=== PATIENT | male | born 1975 | race Caucasian/White ===

== ENCOUNTER 2020-03-20 20:23 | Emergency (ER) | payer OTHER, SELFPAY ==
--- NOTE | ~2020-03-20 | CT_ITS ---
EXAMINATION: CT abdomen pelvis w con EXAM DATE: 03/20/2020 22:52 INDICATION: Generalized abdominal pain. TECHNIQUE: Spiral CT of the abdomen and pelvis was performed following intravenous injection of 100 m L Omnipaque 350. Axial, coronal and sagittal images were reviewed. The dose-length product (DLP) fo r this examination was 1502.87 mGy-cm. The exposure was tailored according to patient size (auto mA exposure control), and iterative reconstruction (ASIR) was used as additional dose reduction techniqu e. There is no prior study for comparison. FINDINGS: The liver, spleen, adrenal glands and pancreas are unremarkable. Gallbladder is unremarkab le. No biliary obstruction. Portal and splenic veins are patent. Kidneys enhance symmetrically. T here is no hydronephrosis. The prostate is unremarkable. The bladder is unremarkable. There is no retroperitoneal or pelvic lymphadenopathy. The appendix is normal. The stomach and small bowel are unremarkable. There is expected amount of c olonic stool. No free intraperitoneal gas. The heart is normal in size. There are no pericardial or pleural effusions. The lung bases are unremarkable. The bones are unremarkable. IMPRESSION: 1. No acute intra-abdominal findings. Reviewed, dictated and finalized at location G.
--- NOTE | ~2020-03-20 | XR_ITS ---
EXAMINATION: XR chest 2V EXAM DATE: 03/20/2020 20:53 INDICATION: Shortness of breath and left-sided chest pain. History of asthma and hypertension. TECHNIQUE: Frontal and lateral projections of the chest obtained and reviewed. There is no prior [place] dy for comparison. FINDINGS: The lungs are clear. There are no pleural effusions. The cardiomediastinal silhouette is within normal limits. There is no pneumothorax suspected. The bones and soft tissues are unremarkab le. IMPRESSION: No acute cardiopulmonary findings. Reviewed, dictated and finalized at location A.
--- NOTE | 2020-03-20 20:25 | ECG_ITS ---
Measurements Intervals [place] Rate: 87 P: -8 [place]: 163 QRS: 35 QRSD: 120 T: 1 QT: 380 QTc: 458 Interpretive Statements SINUS RHYTHM INTRAVENTRICULAR CONDUCTION DELAY BORDERLINE T WAVE ABNORMALITY- INFERIOR LEADS BORDERLINE ECG Electronically Signed On 03-21-2020 10:31:11 CDT by Sergey James D.O.
[2020-03-20 20:31] VITALS: BP 169/98; PULSE 101; RESP 18; TEMP 36.9; O2SAT 99
[2020-03-20 20:35] LABS: Basophils Absolute Auto 0.1 K/mm3 (0.0-0.1); Basophils Percent Auto 0.7 % (0.2-1.2); Eosinophils Absolute Auto 0.3 K/mm3 (0-0.3); Eosinophils Percent Auto 2.8 % (0-4.4); Hematocrit 45.3 % (42.0-52.0); Hemoglobin 15.6 g/dL (14.0-18.0); Immature Granulocyte Absolute 0.03 K/mm3 (0.00-0.031); Immature Granulocyte Percent A 0.3 % (0-0.5); Mean Corpuscular HGB Conc 34.4 g/dl (32-36); Mean Corpuscular Hemoglobin 30.8 pg (26-34); Mean Corpuscular Volume 89.3 fl (80-100); Mean Platelet Volume 9.5 fl (7.4-10.4); Monocytes Absolute Auto 0.8 K/mm3 (0.1-0.6); Monocytes Percent Auto 8.1 % (2.6-8.5); Neutrophils Absolute Auto 5.4 K/mm3 (1.3-6.7); Neutrophils Percent Auto 52.1 % (45.5-73.1); Platelet Count Result 273 k/mm3 (150-375); Red Blood Count 5.07 M/mm3 (4.6-6.20); Red Cell Distribution Width 12.5 % (11.5-14.5); White Blood Count 10.3 K/mm3 (4.5-10.0)
[2020-03-20 20:47] LABS: Blood Urea Nitrogen 9 mg/dL (9-20); Calcium 9.5 mg/dL (8.4-10.2); Carbon Dioxide 24 mmol/L (22-30); Chloride 103 mmol/L (98-107); Estimated Glomerular Filt Rate > 60; Glucose 91 mg/dL (75-110); Potassium 3.4 mmol/L (3.4-5.0); Sodium 138 mmol/L (137-145)
--- NOTE | 2020-03-20 20:52 | ED.GENADULT ---
HPI - General Adult General Chief complaint: Shortness of Breath/Dyspnea Stated complaint: SOB Time Seen by Provider: 03/20/20 20:52 Source: patient Mode of arrival: ambulatory Limitations: no limitations History of Present Illness HPI narrative: Patient is a 44-year-old male who presents for evaluation of sinus congestion, abdominal pain. Patient reports he has been having some shortness of breath because his nose is congested. He took some Claritin with minimal improvement in his symptoms. Patient states he has been having some belly pain, but denies any chest pain or shortness of breath currently. No cough or fever. No diarrhea or constipation. Patient states his daughters prompted him to come to the emergency department. Patient's daughter at bedside states her father has been under a great deal of stress, that her mother from a leukemia cancer diagnosis 2 weeks ago. Patient is tearful, does report some depression type symptoms. Related Data Allergies Allergy/AdvReac Type Severity Reaction Status Date / Time No Known Allergies Allergy Verified 03/20/20 23:27 Review of Systems Review of Systems: Narrative: CONSTITUTIONAL: Denies fever, chills, or sweats. EYES: Denies visual changes, redness, or discharge. ENT: Reports rhinorrhea and congestion, denies sore throat CARDIOVASCULAR: Denies chest pain, palpitations, or edema. RESPIRATORY: Denies cough or dyspnea. GASTROINTESTINAL: Reports abdominal pain, 1 episode of vomiting yesterday, denies diarrhea or constipation GENITOURINARY: Denies dysuria or hematuria. SKIN: Denies rash or itching. MUSCULOSKELETAL: Denies back pain, joint pain, or myalgia. NEUROLOGIC: Denies headache, numbness, or weakness. PSYCHIATRIC: Reports some depression PMFSH Past Medical History Medical History HLD (hyperlipidemia) Family History Family History Father Patient's father is , Onset Age: 83 Family history of chronic obstructive pulmonary disease Social History Social History Smoking status: Never smoker Alcohol intake: current Gender identity (if verbalized by the patient): Male Exam Narrative: Exam Narrative: GENERAL: Awake, alert, conversant HEAD: Normocephalic, atraumatic. EYES: PERRLA and EOMI. ENT: Nares clear, no rhinorrhea or epistaxis. Mucous membranes moist. NECK: Supple. CHEST: No respiratory distress, breathing even and non labored HEART: Regular rate, sinus rhythm ABDOMEN:Non distended, mildly tender in the epigastrium EXTREMITIES: Normal range of motion. No edema. SKIN: Warm, dry, no rash. NEURO:No focal deficits. Alert and oriented x3 Course Vital Signs Vital signs: Vital Signs Temperature 36.9 C 03/20/20 20:31 Pulse Rate 101 H 03/20/20 20:31 Respiratory Rate 18 03/20/20 20:31 Blood Pressure 169/98 H 03/20/20 20:31 Pulse Oximetry 99 03/20/20 20:31 Temperature 36.9 C 03/20/20 20:31 Pulse Rate 78 03/20/20 21:30 Respiratory Rate 17 03/20/20 21:30 Blood Pressure 146/91 H 03/20/20 21:30 Pulse Oximetry 96 03/20/20 21:30 Medical Decision Making MDM Narrative Medical decision making narrative: Patient presented for evaluation of sinus congestion, abdominal pain. At the time of assessment, patient is denying any current shortness of breath, chest pain or cough. Patient is tearful, slightly depressed over the of his spouse who recently. Patient has seen a primary care provider, but patient's daughters wanted him to get checked out to make sure he was not having a heart attack. Laboratory results are reassuring. D-dimer is normal, thus PE is not likely. No chest pain, no current dyspnea. No elevation in troponin. Pt does have a remote history of asthma, but no current wheezing. Vital signs are very stable. No acute abnormalities
[2020-03-20 21:21] LABS: Alanine Aminotransferase 79 U/L (4-50); Albumin Level 4.8 g/dL (3.5-5.1); Alkaline Phosphatase 76 U/L (38-126); Aspartate Amino Transferase 46 U/L (17-59); Bilirubin,Total 0.7 mg/dL (0.2-1.3); Blood Urea Nitrogen 9 mg/dL (9-20); Calcium 9.4 mg/dL (8.4-10.2); Carbon Dioxide 23 mmol/L (22-30); Chloride 103 mmol/L (98-107); Estimated Glomerular Filt Rate > 60; Glucose 90 mg/dL (75-110); Lipase 61 U/L (23-300); Potassium 3.4 mmol/L (3.4-5.0); Sodium 137 mmol/L (137-145)
[2020-03-20 21:30] VITALS: BP 146/91; PULSE 78; RESP 17; O2SAT 96
[2020-03-20 21:46] LABS: D Dimer 0.27 ug/mL (<0.48)
[2020-03-20 23:00] VITALS: O2SAT 98
[2020-03-21 00:14] LABS: Troponin I < 0.012 ng/mL (0.000-0.034)
[2020-03-21 00:36] VITALS: PULSE 86
[2020-03-21 00:37] VITALS: BP 142/98; PULSE 82; RESP 16; O2SAT 94
== END 2020-03-21 00:28 | disposition home or self-care (01) ==
PROVIDERS: Emergency Provider Emergency Medicine; PCP Emergency Medicine
DX: R09.81 Nasal congestion (principal); E78.5 Hyperlipidemia, unspecified; I45.9 Conduction disorder, unspecified; R94.31 Abnormal electrocardiogram [ECG] [EKG]
CPT/HCPCS: 36415; 71046; 74177; 80048; 80053; 83690; 84484; 85025; 85380; 93005; 99284; Q9967

== ENCOUNTER → 2022-02-19 11:54 | Outpatient (CLI) | payer BC, SELFPAY ==
--- NOTE | ~2022-02-19 | MR_ITS ---
EXAMINATION: MR lumbar spine wo con DATE: 02/19/2022 12:17 INDICATION: Radiculopathy, site unspecified. Low back pain. TECHNIQUE: Magnetic resonance imaging (MRI) of the lumbar spine was performed without intravenous con trast. Sequences included sagittal T2-weighted FSE, sagittal T2-weighted FS FSE, sagittal T1-weighted FSE, and axial T2-weighted FSE. COMPARISON: None FINDINGS: There is 3 mm additional listhesis of L2 on L3 and L3 on L4. Vertebral body heights are nor mal. There is mildly decreased disc height from L2-L3 through L5-S1. The distal spinal cord signal in tensity is normal. The conus medullaris is at L1. The following disc levels are specifically discusse d: L1-L2: The disc does not extend beyond the endplate margin. There is mild right facet joint osteoarth ritis. There is no neural foraminal stenosis. There is no central canal stenosis. L2-L3: The disc is bulging and has an annular fissure. There is mild bilateral facet joint osteoarthr itis. There is mild right and moderate left neural foraminal stenosis. There is mild central canal st enosis. L3-L4: The disc is bulging and has an annular fissure. There is mild bilateral facet joint osteoarthr itis. There is mild right and moderate left neural foraminal stenosis. There is mild central canal st enosis. L4-L5: There is a central extrusion. There is moderate right and severe left facet joint osteoarthrit is. There is moderate bilateral neural foraminal stenosis. There is mild central canal stenosis. L5-S1: There is a broad-based right central extrusion. There is moderate bilateral facet joint osteoa rthritis. There is mild bilateral neural foraminal stenosis. There is mild central canal stenosis. IMPRESSION: 1. Moderate lumbar spondylosis. Reviewed, dictated and finalized at location A.
== END ==
PROVIDERS: PCP Emergency Medicine; Visit Provider Emergency Medicine
DX: M47.27 Other spondylosis with radiculopathy, lumbosacral region (principal); M48.07 Spinal stenosis, lumbosacral region
CPT/HCPCS: 72148